=== PATIENT | female | born 1985 | race Caucasian/White ===

== ENCOUNTER 2020-06-06 08:00 | Outpatient (CLI) | payer OTHER | END 2020-06-06 23:59 | disposition home or self-care (01) | LOC: LAB.R 08:00 | PROVIDERS: ATTEND Nurse Practitioner Family | DX: R30.0 Dysuria (principal) | CPT/HCPCS: 87086 ==

== ENCOUNTER 2021-07-02 08:42 | Outpatient (CLI) | payer OTHER ==
--- NOTE | 2021-07-03 08:41 | Mammography Report ---
BILATERAL DIGITAL DIAGNOSTIC MAMMOGRAM 3D/2D: 07/02/2021 CLINICAL: Palpable right breast lump. Baseline exam. Baseline exam. No prior exams were available for comparison. The tissue of both breasts is heterogen eously dense. This may lower the sensitivity of mammography. No mass is identified at the right breast palpable abnormality. There is a 2.1 cm oval equal density focal asymmetry with a microlobulated margin in the right breast at 11 o'clock anterior depth. Finding is seen only on tomography. No other significant masses, calcifications, or other findings are seen in either breast. IMPRESSION: INCOMPLETE: NEEDS ADDITIONAL IMAGING EVALUATION 1) No mass is identified at the right breast palpable abnormality. -A targeted ultrasound is recommended and will immediately follow. 2) The 2.1 cm oval equal density focal asymmetry in the right breast is indeterminate. -A targeted ultrasound is recommended and will immediately follow. This exam was interpreted at Station ID: [id number]. NOTE: For mammograms, a report in lay terms will be sent to the patient. Approximately 15% of breast malignancies will not be visualized mammographically. In the management of a palpable breast mass, a negative mammogram must not discourage biopsy of a clinically suspicious lesion. Electronically Signed By: Steven Cage M.D. slc/:07/02/2021 09:45:55 ACR BI-RADS Category 0: Incomplete 3340F PARENCHYMAL PATTERN: (D) - The breast(s) demonstrate(s) heterogeneously dense fibroglandular parenchy ma. BI-RADS CATEGORY: (0) - 0 Ultrasound [id number] Immediate follow-up LATERALITY: (B)
--- NOTE | 2021-07-03 08:41 | Ultrasound Report ---
LIMITED ULTRASOUND OF RIGHT BREAST: 07/02/2021 CLINICAL: Palpable right breast lump. Comparison is made to exam dated: 07/02/2021 mammogram - [facility]. Color flow and real-time ultrasound of the right breast 9-11 o'clock region were performed. Neal sca le images of the real-time examination were reviewed. There is a 1.9 cm x 1.6 cm x 0.7 cm wider than tall oval mass with a microlobulated margin in the rig ht breast at 11 o'clock anterior depth 2 cm from the nipple. This correlates as palpated and with ma mmography findings. Color flow imaging demonstrates that there is no vascularity present. IMPRESSION: SUSPICIOUS OF MALIGNANCY The 1.9 cm x 1.6 cm x 0.7 cm wider than tall oval mass in the right breast resembles a fibroadenoma a nd is at a low suspicion for malignancy. An ultrasound guided biopsy is recommended. Exam findings were discussed with the patient by Dr. Jolie Rosario. This exam was interpreted at Station ID: [id number]. Electronically Signed By: Steven Cage M.D. slc/:07/02/2021 10:14:33 Ultrasound BI-RADS: 4a Low suspicion for malignancy BI-RADS CATEGORY: (4a) - Low Susp None [id number] Immediate follow-up LATERALITY: ()
== END 2021-07-02 08:43 | disposition home or self-care (01) ==
LOC: DI 08:42
PROVIDERS: ATTEND Family Medicine
DX: N63.11 Unspecified lump in the right breast, upper outer quadrant (principal)

== ENCOUNTER 2021-07-09 12:59 | Outpatient (CLI) | payer OTHER ==
[~2021-07-09 12:59] MED LIST: BUFFERED LIDOCAINE 10 ML SYRINGE ONE; LIDOCAINE MPF 1%-EPI 1:200000 30 ML VIAL ONE
[2021-07-09] MEDS ORDERED: LIDOCAINE MPF 1%-EPI 1:200000 30 ML VIAL SUBQ ONE (15:00)
[2021-07-09] MEDS ORDERED: BUFFERED LIDOCAINE 10 ML SYRINGE IU ONE (16:13)
--- NOTE | 2021-07-13 08:02 | Mammography Report ---
UNILATERAL RIGHT DIGITAL DIAGNOSTIC MAMMOGRAM 3D/2D: 07/09/2021 CLINICAL: Post right breast ultrasound biopsy, clip placment imaging. Comparison is made to exams dated: 07/02/2021 ultrasound and 07/02/2021 mammogram - [facility]. The tissue of right breast is extremely dense, which lowers the sensitivity of mammograp hy. There is a marker clip in the appropriate position in the right breast 11 o'clock seen in the cranioc audal view only. This marker clip placement is at the biopsy site. IMPRESSION: POST PROCEDURE MAMMOGRAM FOR MARKER PLACEMENT There was a successful marker clip placement in the right breast 11 o'clock seen on the craniocaudal view only. This exam was interpreted at Station ID: [id number]. NOTE: For mammograms, a report in lay terms will be sent to the patient. Approximately 15% of breast malignancies will not be visualized mammographically. In the management of a palpable breast mass, a negative mammogram must not discourage biopsy of a clinically suspicious lesion. Electronically Signed By: Jolie Rosario M.D. [facility]/:07/09/2021 17:10:59 ACR BI-RADS Category Post-procedure mammogram for marker placement PARENCHYMAL PATTERN: (VD) - The breast(s) demonstrate(s) extremely dense parenchyma, limiting the sen sitivity of mammography. BI-RADS CATEGORY: () - Unspecified - other recall n/a LATERALITY: (B)
--- NOTE | 2021-07-14 07:48 | Ultrasound Report ---
ULTRASOUND GUIDED BIOPSY RIGHT BREAST USING VACUUM DEVICE WITH MARKING DEVICE INSERTED: 07/09/2021 CLINICAL: Right breast mass. PATIENT CONSENT: Risks (minor bleeding, infection, vasovagal reaction and repeat procedure), benefits and alternatives were explained to the patient and written informed consent was obtained. Correlation is made to exam dated: 07/02/2021 ultrasound - [facility]. An ultrasound guided biopsy using real-time ultrasound was performed for the lobulated mass located i n the right breast at 11 o'clock. This was described on the previous mammography and ultrasound repo rts. The skin was prepped in the usual manner. Topical and local anesthetic was administered to the access site. A skin anjel was made in the breast. The abnormality was approached from the lateral a spect. A biopsy needle was placed adjacent to the abnormality under ultrasound guidance. Once the n eedle was documented to be in the correct location, a specimen was obtained using the Mammotome biops y system. A titanium clip was inserted into the biopsy cavity. A sterile dressing was applied to th e access site. The specimen was sent to the laboratory for pathological analysis. IMPRESSION: ULTRASOUND GUIDED BIOPSY BENIGN Ultrasound guided biopsy of the mass in the right breast at 11 o'clock posterior depth was successful . Pathology indicates benign sclerosed fibroadenoma. Pathology results are concordant with imaging findings. Recommend clinical follow up for persistent or worsening symptoms, or development of any clinically s uspicious findings. Recommend initiating routine screening mammogram given reported history of first degree relative tom murray diagnosed at age 45. This exam was interpreted at Station ID: [id number]. Jolie Mejia M.D. [facility],[place]/:07/13/2021 22:51:42 BI-RADS CATEGORY: () - Unspecified - other recall n/a LATERALITY: (B)
== END 2021-07-09 13:00 | disposition home or self-care (01) ==
LOC: DI 12:59
PROVIDERS: ATTEND Family Medicine
DX: D24.1 Benign neoplasm of right breast (principal)
CPT/HCPCS: 19083